=== PATIENT | male | born 2000 | race Two or more races ===

== ENCOUNTER 2025-02-13 02:02 | Emergency (ER) | payer MEDICAID, SELFPAY ==
[2025-02-13 02:03] VITALS: BMI 28.3
[2025-02-13 02:35] VITALS: BP 128/82; PULSE 94; RESP 28; TEMP 36.5; O2SAT 100
[2025-02-13] MEDS: DIAZEPAM 5 MG TABLET 10 MG PO (02:49)
[2025-02-13 03:31] LABS: Basophils # (Auto) 0.0 Thou/mm3 (0.0-0.2); Basophils % (Auto) 0 % (0-2.5); Eosinophils # (Auto) 0.3 Thou/mm3 (0.0-0.5); Eosinophils % (Auto) 4 % (0-10); Hematocrit 44.0 % (41.0-53.0); Hemoglobin 15.1 g/dL (13.5-16.0); Immature Granulocytes Auto 0.02 Thou/mm3 (0.00-0.00); Lymphocytes # (Auto) 2.5 Thou/mm3 (1.0-4.8); Lymphocytes % (Auto) 38 % (10-50); Mean Corpuscular HGB Conc 34.3 g/dl (31.0-37.0); Mean Corpuscular Hemoglobin 30.0 pg (25.0-35.0); Mean Corpuscular Volume 87 fL (80-100); Monocytes # (Auto) 0.6 Thou/mm3 (0.0-0.8); Monocytes % (Auto) 9 % (0-12); Neutrophils # (Auto) 3.3 Thou/mm3 (1.8-7.7); Neutrophils % (Auto) 49 % (37-80); Nucleated Red Blood Cell # 0.00 Thou/mm3 (0.00-0.00); Nucleated Red Blood Cell % 0 /100 WBC (0); Platelet Count 192 Thou/mm3 (140-440); RDW Standard Deviation 39.8 fL (35.1-43.9); Red Blood Count 5.04 Miln/mm3 (4.50-5.90); White Blood Count 6.7 Thou/mm3 (3.8-10.6)
[2025-02-13 03:54] LABS: HIV (1&2) Antibody Rapid Non-Reactive
[2025-02-13 03:57] LABS: Alanine Aminotransferase 13 U/L (10-49); Albumin, Serum 4.8 gm/dL (3.5-5.0); Albumin/Globulin Ratio 1.8 (1.2-2.2); Alcohol, Blood Medical < 3.0 mg/dL (0-10.0); Alkaline Phosphatase 51 U/L (46-116); Anion Gap 8 (7-16); Aspartate Amino Transferase 24 U/L (0-34); BUN/Creatinine Ratio 13 Ratio (12-20); Bilirubin,Total 0.4 mg/dL (0.3-1.2); Blood Urea Nitrogen 12 mg/dL (9-23); Calcium 9.9 mg/dL (8.3-10.6); Calcium (Corrected) 9.9 mg/dL (8.5-10.1); Carbon Dioxide 26.5 mMol/L (20.0-31.0); Chloride 107 mMol/L (98-107); Creatinine (Component) 0.9 mg/dL (0.6-1.3); Estimated Creatinine Clearance 110.6 mL/min (>60); Globulin 2.6 gm/dL (2.3-3.5); Glucose 109 mg/dL (74-106); Osmolality,Calculated 281 (275-295); Potassium 3.2 mMol/L (3.4-5.1); Sodium 141 mMol/L (136-145); Total Protein 7.4 gm/dL (5.7-8.2); eGFR > 60 See Note
--- NOTE | 2025-02-13 04:40 | EDNOTE_ITS ---
ED Anxiety RME/HPI General Chief Complaint: Shortness of Breath/Dyspnea Stated Complaint: SOB Time Seen by Provider: 02/13/25 02:40 Arrival date/time: 02/13/25 02:02 25M with history of anxiety presents to ED with panic attack. Patient denies SI/HI and does not not want to talk to crisis. Patient just wants meds. Patient also wants an HIV test. Limitations: no limitations Related Data Allergies Allergy/AdvReac Type Severity Reaction Status Date / Time Penicillins Allergy Verified 02/13/25 02:08 Review of Systems Review of Systems Systems Reviewed: All systems reviewed, normal except as documented Psychiatric Psychiatric: Reports as per HPI, Reports anxiety and Reports panic attacks Past Medical History Social History SMOKING STATUS: Current every day smoker ED Exam General Limitations: Present no limitations General appearance: Present alert and anxious Head Head exam: Present atraumatic Neck Neck exam: Present normal inspection, full ROM and trachea midline Chest Chest inspection: Present normal inspection and symmetric chest wall rise Neurological Exam Neurological exam: Present alert and oriented X3 Psychiatric Psychiatric exam: Present normal affect, agitated and anxious Skin Skin exam: Present warm, dry, intact and normal color Course Quality Measures none Orders Category Date Time Status Alcohol, Blood Medical Stat Lab 02/13/25 03:16 Completed CBC Stat Lab 02/13/25 03:16 Completed CMP [Comprehensive Metabolic Panel] Stat Lab 02/13/25 03:16 Completed HIV (1&2) Antibody Rapid Stat Lab 02/13/25 03:16 Completed Diazepam [Valium] Med 02/13/25 02:40 Discontinued 10 mg PO X1 ONE Potassium Chloride [K-Dur] Med 02/13/25 04:03 Discontinued 40 meq PO X1 ONE Vital Signs Vital signs: Vital Signs Temperature 97.7 F 02/13/25 02:35 Pulse Rate 94 02/13/25 02:35 Respiratory Rate 28 H 02/13/25 02:35 Blood Pressure 128/82 02/13/25 02:35 Pulse Oximetry (%) 100 02/13/25 02:35 Oxygen Delivery Method Room Air 02/13/25 02:35 Anxiety MDM Narrative MDM Narrative: 25M with history of anxiety presents to ED with panic attack. Patient denies SI/HI and does not not want to talk to crisis. Patient just wants meds. Patient also wants an HIV test. Physical exam reveals crying and hyperventilating patient. Patient is afebrile and alert. No leukocytosis. CMP only mildly low K, repleted. Valium improved symptoms. HIV neg. Patient data External records reviewed:: None Clinical information provided by:: patient Social determinants that could affect healthcare access:: mental health Patient has the following chronic illnesses:: anxiety How is presenting disease/condition affected by chronic disease/condition?: exacerbated by Evaluation data The following diagnostics were reviewed and interpreted by me:: lab results Lab and/or radiology exams considered but not ordered:: ordered Interpretation Summary: above Medications / Prescriptions Medications or Prescriptions considered but not ordered:: ordered Medication administrations:: Medication Administration History Discontinued Medications Diazepam (Diazepam 5 Mg Tablet) 10 mg PO X1 ONE Stop: 02/13/25 02:41 Last Admin: 02/13/25 02:49 Dose: 10 mg Documented By: BRYCE Potassium Chloride (Potassium Chloride 20 Meq Tabcr) 40 meq PO X1 ONE Stop: 02/13/25 04:04 Last Admin: 02/13/25 04:27 Dose: 40 meq Documented By: MICHEL Consultations Consultation(s) initiated? (list below): No Diagnosis Differential diagnosis anxiety: hyperventilation, panic disorder (attack) and acute anxiety Most likely diagnosis given after review of the tests above:: panic attack Admission Indicated Admission indicated?: not indicated Admission Request Was there a request for admission?: No Disposition Plan Disposition Plan: Discharge Discharge Attestation Discharge Attestation: The patient and all family members were given an opportunity to ask questions and understood the discharge instructions. Discharge instructions specifically effects, indications for sooner follow up or return to the emergency department, and the expected course of current diagnosis. Patient condition: Stable Discharge Plan Plan Patient Disposition: HOME (Self Care) Discharge Disposition comment: Stable Prescriptions/Referrals Referrals: No Primary/Family,Physician [Primary Care Provider] - In 1 week Problem List Clinical Impression: Panic attack Patient/Caregiver Discharge Instructions Education Materials: ED Panic Attack Additional Instructions: Please follow-up with PCP within 24-48 hours and return immediately if symptoms worsen. Print Language: Mozambican Stand Alone Forms: Patient Portal Info Letter DANIEL/DORI Supervising Physician DANIEL/DORI Supervising Physician: Dr. Moe
== END 2025-02-13 04:41 | disposition home or self-care (01) ==
PROVIDERS: Physician Assistant; Emergency Provider Emergency Medicine
DX: F41.0 Panic disorder [episodic paroxysmal anxiety] (principal)
CPT/HCPCS: 36415; 80053; 80320; 85025; 86703; 99282; A9270; G0480

== ENCOUNTER 2025-03-03 23:21 | Emergency (ER) | payer MEDICAID, SELFPAY ==
[2025-03-03 23:29] VITALS: BP 110/69; PULSE 88; RESP 20; TEMP 36.7; O2SAT 100
[2025-03-03 23:32] VITALS: PULSE 120; RESP 18; O2SAT 98
--- NOTE | 2025-03-03 23:37 | EKG_ITS ---
[facility] Test Date: 2025-03-03 Pat Name: MCKENZIE SEQUEIRA Department: Room: - Gender: Male Budget Controller: : 2000 Requested By: Maggie Jack Order Number: [id number] Reading MD: Maggie Jack Measurements Intervals [place] Rate: 78 P: 72 IA: 153 QRS: 46 QRSD: 105 T: 70 QT: 367 QTc: 419 Interpretive Statements SINUS RHYTHM WITH MARKED SINUS ARRHYTHMIA No previous ECG available for comparison /store/S0/[id number]/ecg/[id number].pdf
--- NOTE | 2025-03-03 23:57 | EDRME_ITS ---
Rapid Medical Screening Exam RME Arrival date/time: 03/03/25 23:21 25M with history of psych (on Buproprion, SSRI, and hydroxyzine) presents to ED with multiple panic attacks today with symptoms including throat closing, SOB, CP, and generalized numbness. Patient denies emotional/triggering event and alcohol/drug use today. Patient denies SI/HI. Patient would however, like to talk to the crisis team and possibly socials services in the morning. Patient lives alone in [facility]. Chief Complaint: Anxiety Vital signs: Vital Signs Temperature 98.1 F 03/03/25 23:29 Pulse Rate 88 03/03/25 23:29 Respiratory Rate 20 03/03/25 23:29 Blood Pressure 110/69 03/03/25 23:29 Pulse Oximetry (%) 100 03/03/25 23:29 Oxygen Delivery Method Room Air 03/03/25 23:29 Exam: Very anxious. Hyperventilating. Clear lungs. RRR. Clinical Impression: anxiety vs panic attack vs psych vs drug
[2025-03-04] MEDS: DIAZEPAM 5 MG TABLET 10 MG PO (00:07)
--- NOTE | 2025-03-04 05:12 | PC.NURSE ---
PT ASLEEP IN THE ER LOBBY.
--- NOTE | 2025-03-04 11:14 | PC.CC ---
DIVINE Lopez was contacted by charge nurse to assess patient presenting to the Emergency Department for anxiety. VERTICAL BORING MILL OPERATOR met with patient in a conference room. Patient is a 25 year old male who presented the ER after experience multiple anxiety attacks. Patient appeared disheveled, maintain good eye contact, was able to answer questions appropriately and became tearful at times. Patient was cooperative and receptive to support and assistance. Patient reported a history of self-harm behaviors specifically cutting. VERTICAL BORING MILL OPERATOR noted healed scars on patient forearm consistent with reported history. Patient stated cutting behaviors were used a coping mechanism to feel, and denied intend to end his life. Patient denied current suicidal ideation, homicidal ideation or auditory/visual hallucinations. Patient stated he wants to live Patient reports a history of substance use, including alcohol, cocaine and crystal. Patient denied current substance use. Patient reported no prior engagement with psychiatric or therapeutic services, despite pervious referral to community mental heal provider, which he declined a the time. 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 Patient reported limited social support and identified on individual form prior relation as someone he can speak with when needed. Patient reported he is currently prescribed meditation for anxiety and depression by his primary care provider and a psychiatrist scheduled for 03/16 and and PCP on 03/08 and stated he plans to discuss his mental health needs. VERTICAL BORING MILL OPERATOR provided emotional support, psychoeducation and resource information. Patient was provided with discharge planning support an safe return home planning. patient declined adtional social work intervetion at this time. VERTICAL BORING MILL OPERATOR spoke with charge nurse and provided information and how the VERTICAL BORING MILL OPERATOR provided resources information.
--- NOTE | 2025-03-04 11:18 | PC.NURSE ---
NO ANSWER IN LOBBY
--- NOTE | 2025-03-04 11:40 | PC.NURSE ---
NO ANSWER IN LOBBY
--- NOTE | 2025-03-04 12:06 | PC.NURSE ---
NO ANSWER IN LOBBY. PT ELOPED
== END 2025-03-04 12:07 | disposition left against medical advice (07) ==
PROVIDERS: Emergency Provider Emergency Medicine; PCP Family Medicine
DX: F41.0 Panic disorder [episodic paroxysmal anxiety] (principal); R06.02 Shortness of breath; R20.0 Anesthesia of skin; R06.4 Hyperventilation; I49.8 Other specified cardiac arrhythmias; Z53.29 Procedure and treatment not carried out because of patient's decision for other reasons
CPT/HCPCS: 93005; 99282; A9270

== ENCOUNTER 2025-03-05 22:39 | Emergency (ER) | payer MEDICAID, SELFPAY ==
[2025-03-05 22:41] VITALS: BMI 22.6
[2025-03-05 23:06] VITALS: BP 145/88; PULSE 98; RESP 18; TEMP 36.7; O2SAT 98
== END 2025-03-05 23:07 | disposition left against medical advice (07) ==
PROVIDERS: Emergency Provider Emergency Medicine
DX: Z53.29 Procedure and treatment not carried out because of patient's decision for other reasons (principal); R94.31 Abnormal electrocardiogram [ECG] [EKG]
CPT/HCPCS: 93005; 99281

== ENCOUNTER 2025-03-06 00:48 | Emergency (ER) | payer MEDICAID, SELFPAY ==
--- NOTE | 2025-03-06 00:52 | PC.NURSE ---
DR. GOMEZ ASSESSING PATIENT AT THIS TIME.
--- NOTE | 2025-03-06 00:59 | XR_ITS ---
Examination: CT brain head without contrast. 2-D sagittal coronal reconstructions Date and time of exam: March 06, 2025, 0151 hours INDICATIONS: Headache today CTDI: vol (mGy): 51.90 DLP: (mGycm): 1052 Technique: Multiple CT axial sections of the brain have been obtained, 5 mm slice thickness. Contrast has not been administered. 2-D sagittal, coronal reconstructions have been obtained Low dose protocols were performed. One or more of the following dose reduction techniques were used; automated exposure control, adjustment of the mA and/or KV according to patient size, use of iterative reconstruction technique. Findings: No significant ventricular enlargement. Intra-axial or extra-axial hemorrhage density is not seen. No mass effect or midline shift Basal cisterns are not remarkable. Fourth ventricle is midline. Cranial vault intact. Impression: Negative for acute hemorrhage, mass effect or midline shift
[2025-03-06 01:04] VITALS: BP 152/90; PULSE 135; RESP 19; TEMP 37; O2SAT 95
--- NOTE | 2025-03-06 01:04 | PD.EDHA ---
ED Headache RME/HPI General Chief Complaint: Headache Stated Complaint: LAUREANO, PAIN WITH BREATHING, TROUBLE GETTING STRAIGHT Time Seen by Provider: 03/06/25 00:59 Arrival date/time: 03/06/25 00:48 Mode of arrival: ambulatory RME / HPI Complaint: headache RME / HPI Narrative: DR. GOMEZ MAIN ED EVALUATION: 25 y/o male with Hx of Marijuana and Tobacco use presents to ED c/o severe headache, neck stiffness, and painful inspiratory breathing. Denies history of DM. Also denies visual and auditory hallucinations. Reports allergies to Penicillins. Patient denies methamphetamine abuse. Reports no tobacco or marijuana use in the last 2 months. Related Data Allergies Allergy/AdvReac Type Severity Reaction Status Date / Time Penicillins Allergy Verified 03/06/25 00:50 Review of Systems Review of Systems Systems Reviewed: All systems reviewed, normal except as documented Past Medical History Past Medical History CARDIAC: Negative Congestive Heart Failure RESPIRATORY: Negative Chronic Obstructive Pulmonary Disease (COPD) GENITOURINARY: Negative Renal Disease ENDOCRINE: Negative Diabetes Mellitus Type 1 or Diabetes Mellitus Type 2 Social History SMOKING STATUS: Current some day smoker SUBSTANCE USE: former substance user and marijuana ALCOHOL: Never ED Exam Narrative Physical exam: GEN. APPEARANCE: The patient is alert awake oriented X-3 in distress, appears agitated. Patient has good eye contact. Patient is cooperative. VITALS: All vitals were reviewed and the pulse ox is 95% on room air which is normal according to my interpretation. HEENT: Normocephalic, atraumatic. Pupils are equal and reactive. Oral mucosa is moist. Patent Nares NECK: Supple, nontender, no thyromegaly, no meningismus, no JVD CHEST: Symmetrical, atraumatic, and with equal expansion , Nontender on palpation no deformity and no crepitus. CARDIOVASCULAR: Heart regular rhythm no murmur or gallop rub or extra beats. LUNGS: Clear to auscultation bilaterally with symmetrical chest rise. No laboring tachypnea or wheezing. No intercostal subcostal retraction. No rales and no rhonchi. ABDOMEN: Soft, flat, nontender to palpation, no guarding or rebound tenderness. There are no abnormal masses palpated. Active and normal bowel sounds. EXTREMITIES: Nontender. No edema. No cyanosis. Patient is able to move all 4 extremities well, with full ROM and good CSM. SKIN: Warm and dry, no jaundice or rashes noted. NEURO: Patient is FLORES x 4, Cranial nerves II through XII grossly intact. There is no focal neurologic deficits noted. GCS is 15, PNS and MEDIA LIBRARIAN appear grossly intact. PSYCHIATRIC: Alert. Agitated. Course Quality Measures none Orders Category Date Time Status CT head/brain wo con Stat Exams 03/06/25 00:59 Taken Acetaminophen Stat Lab 03/06/25 01:35 Completed Alcohol, Blood Medical Stat Lab 03/06/25 01:35 Completed Ammonia Stat Lab 03/06/25 01:35 Completed CBC Stat Lab 03/06/25 01:35 Completed CMP [Comprehensive Metabolic Panel] Stat Lab 03/06/25 01:35 Completed Drug Screen,Urine Stat Lab 03/06/25 01:00 Ordered INR [Prothrombin Time with INR] Stat Lab 03/06/25 01:35 Completed Salicylate Stat Lab 03/06/25 01:35 Completed UA, C/S IF [Urinalysis, C/S if Indicated] Stat Lab 03/06/25 01:00 Ordered DiphenhydrAMINE INJ [Benadryl Inj] Med 03/06/25 01:16 Discontinued 25 mg IVP X1 ONE LORazepam [Ativan] Med 03/06/25 01:01 Discontinued 0.5 mg PO X1 ONE Ringers Lactated 1000 ml [Lactated Ringers] 1,000 ml Med 03/06/25 01:01 Discontinued IV 999 mls/hr Vital Signs Vital signs: Vital Signs Temperature 98.6 F 03/06/25 01:04 Pulse Rate 135 H 03/06/25 01:04 Respiratory Rate 19 03/06/25 01:04 Blood Pressure 152/90 H 03/06/25 01:04 Pulse Oximetry (%) 95 03/06/25 01:04 Oxygen Delivery Method Room Air 03/06/25 01:04 Headache MDM Narrative MDM Narrative:: Scribe Attestation: La Moran am scribing for and in the presence of Dr. Gomez. Provider Notation: Although this document has been carefully reviewed, there may still be some phonetic and other typographical errors. These errors are purely grammatical due to imperfections in the software program and should not be construed in any way to compromise the substance of the patient's medical care during this visit. Patient is a 25-year-old male with medical history notable for psychiatric disorder this in the emergency department with concerns for feeling anxious. Vital signs and exam as listed. Concern for metabolic disturbance, intoxication, intracranial disturbance. Ordered labs, CT brain offered medication for symptom relief. Abnormality viral syndrome pneumonia Patient data External records reviewed:: [facility] previous records (Reviewed prior ED records from 02/13/25. Patient was seen for Panic attack.) Clinical information provided by:: patient Social determinants that could affect healthcare access:: substance use (Prior Methamphetamine and Marijuana use) Patient has the following chronic illnesses:: Recreational Drug Use How is presenting disease/condition affected by chronic disease/condition?: exacerbated by Evaluation data The following diagnostics were reviewed and interpreted by me:: lab results and radiology exam(s) Lab and/or radiology exams considered but not ordered:: None Interpretation Summary: RADIOLOGY Head/Brain CT: Findings: No evidence of intracranial hemorrhage, mass effect or midline shift. The ventricles and CSF spaces are unremarkable. The calvarium is unremarkable. The mastoid air cells and the visualized paranasal sinuses are clear. Impression: No evidence of intracranial hemorrhage, mass effect or midline shift. Aspect score 10. Medications / Prescriptions Medications or Prescriptions considered but not ordered:: None Medication administrations:: Medication Administration History Discontinued Medications Diphenhydramine HCl (Diphenhydramine Inj 50 Mg/Ml Vial) 25 mg IVP X1 ONE Stop: 03/06/25 01:17 Last Admin: 03/06/25 01:29 Dose: 25 mg Documented By: MICHEL Lactated Ringer's (Lactated Ringers) 1,000 mls @ 999 mls/hr IV .Q1H1M ONE Stop: 03/06/25 02:01 Last Infusion: 03/06/25 02:50 Dose: Infused Documented By: Admin: 03/06/25 01:29 Dose: 999 mls/hr Documented By: MICHEL Lorazepam (Lorazepam 0.5 Mg Tablet) 0.5 mg PO X1 ONE Stop: 03/06/25 01:02 Last Admin: 03/06/25 01:30 Dose: 0.5 mg Documented By: MICHEL See above if any. Consultations Consultation(s) initiated? (list below): No Diagnosis Differential diagnosis headache: migraine, tension headache, headache, meningitis and other (Anxiety disorder) Most likely diagnosis given after review of the tests above:: Headache, Acute Stress Reaction Admission Indicated Admission indicated?: not indicated Explain why admission is indicated or not indicated:: Patient does not meet admission criteria. Admission Request Was there a request for admission?: No Disposition Plan Disposition Plan: Discharge Discharge Attestation Discharge Attestation: The patient and all family members were given an opportunity to ask questions and understood the discharge instructions. Discharge instructions specifically effects, indications for sooner follow up or return to the emergency department, and the expected course of current diagnosis. Patient condition: Stable Discharge Plan Plan Patient Disposition: HOME (Self Care) Prescriptions/Referrals Referrals: Hamilton Bernard MD [Primary Care Provider, Family Practice] - In 1 week Problem List Clinical Impression: Headache, Acute stress reaction Patient/Caregiver Discharge Instructions Print Language: Dutch Stand Alone Forms: Arlette Award Info., Patient Portal Info Letter
[2025-03-06 01:05] VITALS: BMI 23.0
[2025-03-06] MEDS: RINGERS LACTATED 1000 ML 1,000 ML 999 ML IV (01:29)
--- NOTE | 2025-03-06 01:38 | PC.NURSE ---
upon arrival to 5, pt appears to be haveing a dystonic reaction. aware. torriel ordered and given.
[2025-03-06 01:59] LABS: Basophils # (Auto) 0.0 Thou/mm3 (0.0-0.2); Basophils % (Auto) 0 % (0-2.5); Eosinophils # (Auto) 0.1 Thou/mm3 (0.0-0.5); Eosinophils % (Auto) 1 % (0-10); Hematocrit 39.5 % (41.0-53.0); Hemoglobin 13.6 g/dL (13.5-16.0); Immature Granulocytes Auto 0.06 Thou/mm3 (0.00-0.00); Lymphocytes # (Auto) 2.8 Thou/mm3 (1.0-4.8); Lymphocytes % (Auto) 21 % (10-50); Mean Corpuscular HGB Conc 34.4 g/dl (31.0-37.0); Mean Corpuscular Hemoglobin 30.3 pg (25.0-35.0); Mean Corpuscular Volume 88 fL (80-100); Monocytes # (Auto) 1.0 Thou/mm3 (0.0-0.8); Monocytes % (Auto) 8 % (0-12); Neutrophils # (Auto) 9.4 Thou/mm3 (1.8-7.7); Neutrophils % (Auto) 70 % (37-80); Nucleated Red Blood Cell # 0.00 Thou/mm3 (0.00-0.00); Nucleated Red Blood Cell % 0 /100 WBC (0); Platelet Count 165 Thou/mm3 (140-440); RDW Standard Deviation 40.3 fL (35.1-43.9); Red Blood Count 4.49 Miln/mm3 (4.50-5.90); White Blood Count 13.4 Thou/mm3 (3.8-10.6)
[2025-03-06 02:15] LABS: INR 1.0 (0.9-1.3); Prothrombin Time 10.5 Seconds (9.0-12.2)
[2025-03-06 02:21] LABS: Ammonia 22 uMol/L (11-32)
[2025-03-06 02:25] LABS: Acetaminophen < 2.0 mcg/mL (10.0-20.0); Alanine Aminotransferase 20 U/L (10-49); Albumin, Serum 4.7 gm/dL (3.5-5.0); Albumin/Globulin Ratio 1.8 (1.2-2.2); Alcohol, Blood Medical < 3.0 mg/dL (0-10.0); Alkaline Phosphatase 50 U/L (46-116); Anion Gap 11 (7-16); Aspartate Amino Transferase 31 U/L (0-34); BUN/Creatinine Ratio 19 Ratio (12-20); Bilirubin,Total 0.3 mg/dL (0.3-1.2); Blood Urea Nitrogen 15 mg/dL (9-23); Calcium 8.9 mg/dL (8.3-10.6); Calcium (Corrected) 8.9 mg/dL (8.5-10.1); Carbon Dioxide 25.0 mMol/L (20.0-31.0); Chloride 107 mMol/L (98-107); Creatinine (Component) 0.8 mg/dL (0.6-1.3); Estimated Creatinine Clearance 155.3 mL/min (>60); Globulin 2.6 gm/dL (2.3-3.5); Glucose 159 mg/dL (74-106); Osmolality,Calculated 288 (275-295); Potassium 3.8 mMol/L (3.4-5.1); Salicylate < 3.0 mg/dL; Sodium 143 mMol/L (136-145); Total Protein 7.3 gm/dL (5.7-8.2); eGFR > 60 See Note
[2025-03-06 03:15] VITALS: BP 123/74; PULSE 89; RESP 18; TEMP 36.6; O2SAT 99
--- NOTE | 2025-03-06 03:17 | PRELIM_ITS ---
CT scan of the head without intravenous contrast (axial sections with sagittal and coronal reformats). March 06, 2025 0151 hours Clinical History: Altered mental status. Comparison: None available at the time of this report. Findings: No evidence of intracranial hemorrhage, mass effect or midline shift. The ventricles and CSF spaces are unremarkable. The calvarium is unremarkable. The mastoid air cells and the visualized paranasal sinuses are clear. Impression: No evidence of intracranial hemorrhage, mass effect or midline shift. Aspect score 10. Report Electronically Signed By: Gal Mercer 03/06/2025 3:17:17 AM [EST]
--- NOTE | 2025-03-06 03:24 | PC.NURSE ---
on arrival to , pt was hyperventilating, on his knees on the gurney. upper body and neck contorted. pt was given benadryl and sx went away and pt was feeling much better. pt is now asleep, arouses easily.
[2025-03-06 05:30] VITALS: BP 110/69; PULSE 80; RESP 18; O2SAT 98
--- NOTE | 2025-03-06 05:32 | PC.NURSE ---
pt has been sleeping since meds given. hr down. denies pain anywhere. has ambulated to BR once.
[2025-03-06 06:47] VITALS: BP 113/62; PULSE 96; RESP 18; TEMP 36.6; O2SAT 95
[2025-03-06 07:04] LABS: Collection Type, Urine Clean Catch; Squamous Epithelial Cell,Urine 0 /hpf (0-5)
[2025-03-06 07:14] LABS: Bacteria,Urine Rare; Bilirubin,Urine Negative (Negative); Blood,Urine Negative (Negative); Clarity,Urine Clear (Clear/Hazy); Color,Urine Colorless (Lt Yel-Yel); Culture Indicated,Urine Not Indicated; Glucose, Urine Negative (Negative); Ketones,Urine Negative (Negative); Leukocyte Esterase,Urine Negative (Negative); Nitrite,Urine Negative (Negative); PH,Urine 7.5 (5.0-7.0); Protein,Urine Negative (Neg - Trace); RBC,Urine 1 /hpf (0-3); Specific Gravity,Urine 1.006 (1.001-1.035); Urobilinogen,Urine Negative mg/dL (0.0-1.0); WBC,Urine < 1 /hpf (0-5)
[2025-03-06 07:23] LABS: Amphetamine/Methamp Scrn,U Negative (Negative); Barbiturate Screen,Urine Negative (Negative); Benzodiazepines Screen,Urine Negative (Negative); Benzoylecgonine Screen, Ur Negative (Negative); Fentanyl Screen,Urine Negative (Negative); Opiate Screen,Urine Negative (Negative); THC Screen,Urine Negative (Negative)
== END 2025-03-06 08:02 | disposition home or self-care (01) ==
PROVIDERS: Emergency Provider Emergency Medicine; PCP Family Medicine
DX: F43.0 Acute stress reaction (principal); R51.9 Headache, unspecified
CPT/HCPCS: 36415; 70450; 80053; 80307; 80320; 80329; 81001; 82140; 85025; 85610; 96361; 96374; 99284; J1200; J7120; A9270; G0480